=== PATIENT | male | born 1970 | race Hispanic/Latino ===

== ENCOUNTER → 2025-01-24 | Emergency (ER) | payer SELFPAY ==
[~2025-01-24] VITALS: Ht 170.2 cm; Wt 86.2 kg
[2025-01-24] MEDS: 0.9%NACL 1000ML 1,000 ML IV ONE (17:37)
--- NOTE | 2025-01-24 17:43 | EKG ---
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
--- NOTE | 2025-01-24 17:54 | ERN ---
ED Note History of Present Illness Stated Complaint: HEAT EXHAUSTION Chief Complaint: Dehydration Time Seen by MD: 17:13 Time Seen by Midlevel: 17:13 Dictation: The patient is a 54-year-old male with a history of CAD, hypertension who presents to the emergency department with complaints of dizziness, weakness, nausea nonbloody vomiting onset today. Patient reports he was working outside. Denies any falls or head trauma. Denies any diarrhea or constipation. Allergies: Coded Allergies: No Known Drug Allergies (Unverified Allergy, Unknown, 01/24/25) Past Medical History Past Medical History: CAD, Diabetes-Type II, High Cholesterol, Hypertension Surgical History: CABG RN Note Reviewed/Agreed w/PFSH: Yes Review of System Dictation Constitutional: Negative for fever,chills, and weight loss Eyes: Negative for injury, pain,redness, and discharge ENT: Negative for injury,pain or swelling Cardiovascular: Negative for chest pain, palpitations, and edema Respiratory: Negative for shortness of breath, cough, and wheezing, Abdomen/GI: Negative for abdominal pain, diarrhea, and constipation positive for nausea and vomiting Back: Negative for injury and pain : Negative for injury, bleeding and discharge MS/Extremity: Negative for injury and deformity Skin: Negative for rash, and discoloration Neuro: Negative for headache,numbness, tingling, and seizure positive for weakness, dizziness Psych: Negative for suicide ideation, homicidal ideation, and hallucinations Initial Vital Sign VS Vital Signs Date Time Temp Pulse Resp B/P (MAP) Pulse Ox O2 Delivery O2 Flow Rate FiO2 01/24/25 17:17 97.9 88 16 105/68 98 Room Air 01/24/25 17:30 0 21 Physical Exam Dictation Vital Signs reviewed General Appearance: Alert, oriented x 3, mildly distress, well developed, nourished. Head and Face: non-traumatic. Eyes: PERRL, pink conjunctivas, eyelid no trauma, anterior chamber with arcus senilis. Ears: Pinnas intact and no signs of trauma or erythema ear canals clear and no discharge TM no erythema Nose: No discharge, no bleeding. Oropharynx: Mouth normal, tongue pink. pharynx clear,no erythema, tonsils no exudates, no abscesses noted, mucous membrane moist Neck: Supple, non-tender, no thyromegaly, no masses, no JVD, no bruits Breast:Deferred Chest:No tenderness, no crepitus, no paradoxical movement, no retractions Lungs:Clear, well-ventilated, symmetric, no rales, no wheezing, no rhonchi, no stridor, good breath sounds bilaterally Heart: Regular rate, regular rhythm, no murmur, no gallops Vascular: no peripheral edema, Abdomen: Soft, positive bowel sounds, nondistended, no guarding, nontender, no rebound, no masses no hepatomegaly, no splenomegaly, no Chase's sign, no hernias. Rectal: Deferred Genital: Deferred Neurological: Normal speech, motor function intact, sensory function intact Musculoskeletal: Neck nontender, full range of motion, back nontender, full range of motion, Extremities: nontender, full range of motion Skin: Color pink diaphoretic,, no turgor, no rash, no lacerations, no abrasions, no contusions. Lymphatic: Deferred Results (Laboratory/Radiology) Laboratory/Radiology Laboratory Tests Test 01/24/25 19:00 White Blood Count 17.9 K/uL (4.8-10.8) H Red Blood Count 5.33 MIL/uL (4.50-6.20) Hemoglobin 16.4 g/dL (14.0-18.0) Hematocrit 48.6 % (42-54) Mean Corpuscular Volume 91.2 fL (79-99) Mean Corpuscular Hemoglobin 30.8 pg (27.0-33.0) Mean Corpuscular Hemoglobin Concent 33.7 g/dL (32.0-36.0) Red Cell Distribution Width 13.5 % (11.0-15.5) Platelet Count 213 K/uL (130-400) Mean Platelet Volume 12.3 fL (7.5-10.5) H Immature Granulocyte % (Auto) 0.6 % (0-1) Neutrophils (%) (Auto) 82.8 % (40.0-77.0) H Lymphocytes (%) (Auto) 11.5 % (21.0-51.0) L Monocytes (%) (Auto) 4.7 % (3.0-13.0) Eosinophils (%) (Auto) 0.1 % (0.0-8.0) Basophils (%) (Auto) 0.3 % (0.0-5.0) Neutrophils # (Auto) 14.8 K/uL (1.8-7.7) H Lymphocytes # (Auto) 2.1 K/uL (1.0-4.8) Monocytes # (Auto) 0.8 K/uL (0.1-1.0) Eosinophils # (Auto) 0.01 K/uL (0.00-0.70) Basophils # (Auto) 0.05 K/uL (0.00-0.20) Absolute Immature Granulocyte (auto 0.10 K/uL (0-1) Nucleated Red Blood Cells 0.0 % (0.0-0.19) Sodium Level 142 mmol/L (136-145) Potassium Level 4.9 mmol/L (3.5-5.1) Chloride Level 107 mmol/L (101-111) Carbon Dioxide Level 25 mmol/L (21-32) Blood Urea Nitrogen 26 mg/dL (7-18) H Creatinine 2.4 mg/dL (0.5-1.3) H Glomerular Filtration Rate Calc 31 mL/min (>90) Random Glucose 129 mg/dL (70-105) H Total Calcium 9.1 mg/dL (8.5-10.1) Magnesium Level 2.00 mg/dL (1.80-2.40) Total Creatine Kinase 88 U/L (21-232) Troponin I High Sensitivity 49 ng/L (4-75) REASON: dizzy, vomiting ORDERING PHYSICIAN: ANGEL COLLINS [employer] PROCEDURE: HEAD WO - CT HEAD/BRAIN W/O CONTRAST EXAM: CT Head Without IV contrast. CLINICAL HISTORY: dizzy, vomiting TECHNIQUE: Axial computed tomography images of the head/brain without intravenous contrast. COMPARISON: None provided. FINDINGS: BRAIN: No evidence of acute hemorrhage. No mass lesion. No CT evidence for acute territorial infarct. No midline shift or extra-axial collections. VENTRICLES: No hydrocephalus. ORBITS: The orbits are unremarkable. SINUSES AND MASTOIDS: The paranasal sinuses and mastoid air cells are clear. BONES: No fracture. SOFT TISSUES: Unremarkable. IMPRESSION: No acute intracranial abnormality. /[place] REASON: dizzy ORDERING PHYSICIAN: ANGEL COLLINS [employer] PROCEDURE: CXR1VW - CHEST 1VW EXAM: CR Chest, 1 View. CLINICAL HISTORY: dizzy COMPARISON: None provided. FINDINGS: LUNGS: No active infiltrate PLEURAL SPACES: No evidence of pleural effusion or pneumothorax. MEDIASTINUM: Prominent cardiac silhouette BONES: No aggressive appearing osseous lesion seen. IMPRESSION: 1. Prominent cardiac silhouette 2. No active infiltrate /[place] Labs Reviewed?: Yes EKG: (+) rhythm (Sinus rhythm) EKG Comment: Date:01/24/2025 Time:1737 Ventricular rate:76 [place] interval:155 QRS duration:122 QT/QTc:449/505 EKG interpretation: Sinus rhythm, left bundle-branch block Reviewed by ED Attending no STEMI ED Course ED Course Orders Procedure Category Date Status Time Cbc With Differential LAB 01/24/25 Complete 17:30 Chest 1vw RAD 01/24/25 Resulted 17:30 12 Lead Ekg Tracing- EKG 01/24/25 Resulted Technical 17:30 0.9%Nacl 1000ml (Ns PHA 01/24/25 Complete 1000ml) 17:30 Ondansetron 4mg Inj PHA 01/24/25 Complete (Zofran 4mg Inj) 17:30 Magnesium LAB 01/24/25 Complete 17:30 Creatine Kinase, Total LAB 01/24/25 Complete 17:30 Troponin I High LAB 01/24/25 Complete Sensitivity 17:30 Urinalysis Profile LAB 01/24/25 Logged 17:30 Basic Metabolic Panel LAB 01/24/25 Complete 17:30 Drug Screen Urine LAB 01/24/25 Logged 17:30 Ct Head/Brain W/O CT 01/24/25 Resulted Contrast 17:30 Meclizine Hcl 25 Mg PHA 01/24/25 Complete (Antivert 25 Mg) 19:30 Current Medications Medications (Trade) Dose Ordered Sig/Blessing Route PRN Reason Start Time Stop Time Status Last Admin Dose Admin Meclizine HCl (ANTIvert 25 mg) 25 mg ONCE ONCE PO 01/24/25 19:30 01/24/25 19:31 DC 01/24/25 19:20 Ondansetron HCl (zoFRAN 4MG INJ) 4 mg ONCE ONCE IVP 01/24/25 17:30 01/24/25 17:33 DC 01/24/25 17:37 Sodium Chloride 1,000 ml @ 0 mls/hr ONCE ONCE IV 01/24/25 17:30 01/24/25 17:33 DC 01/24/25 17:37 Vital Signs Date Time Temp Pulse Resp B/P (MAP) Pulse Ox O2 Delivery O2 Flow Rate FiO2 01/24/25 19:28 98.8 75 18 155/61 99 Room Air* 0 21 01/24/25 18:14 75 20 126/81 98 Room Air* 0 21 01/24/25 17:30 97.9 80 20 118/61 97 Room Air* 0 21 01/24/25 17:17 97.9 88 16 105/68 98 Room Air Medical Decision Making MDM The patient is a 54-year-old male with a history of CAD, hypertension who presents to the emergency department with complaints of dizziness, weakness, nausea nonbloody vomiting onset today. Patient reports he was working outside. Denies any falls or head trauma. Denies any diarrhea or constipation. CBC showed leukocytosis, no anemia, chemistry showed creatinine of 2.4, negative troponin, negative CK level, CT unremarkable. I discussed with the patient that we would have to admit him to the hospital for an acute kidney injury and leukocytosis. Patient reported that he does not want to be admitted to this hospital. Risks and benefits discussed with the patient including worsening kidney condition, , sepsis. At this time patient continues to not want to stay in the hospital. AMA form signed. Patient left AMA Differential diagnosis: Electrolyte imbalance, dehydration, intracerebral hemorrhage, gastroenteritis DX & DISP Disposition: AMA Departure Condition: Stable I have reviewed the case, and I agree with, Diagnosis and Plan ANGEL COLLINS Jan 24, 2025 17:54
--- NOTE | 2025-01-24 18:08 | HMCIMG ---
EXAM: CT Head Without IV contrast. CLINICAL HISTORY: dizzy, vomiting TECHNIQUE: Axial computed tomography images of the head/brain without intravenous contrast. COMPARISON: None provided. FINDINGS: BRAIN: No evidence of acute hemorrhage. No mass lesion. No CT evidence for acute territorial infarct. No midline shift or extra-axial collections. VENTRICLES: No hydrocephalus. ORBITS: The orbits are unremarkable. SINUSES AND MASTOIDS: The paranasal sinuses and mastoid air cells are clear. BONES: No fracture. SOFT TISSUES: Unremarkable. IMPRESSION: No acute intracranial abnormality. /[place]
--- NOTE | 2025-01-24 18:11 | HMCIMG ---
EXAM: CR Chest, 1 View. CLINICAL HISTORY: dizzy COMPARISON: None provided. FINDINGS: LUNGS: No active infiltrate PLEURAL SPACES: No evidence of pleural effusion or pneumothorax. MEDIASTINUM: Prominent cardiac silhouette BONES: No aggressive appearing osseous lesion seen. IMPRESSION: 1. Prominent cardiac silhouette 2. No active infiltrate /[place]
--- NOTE | 2025-01-24 18:17 | NUR ---
CALLED AGAIN TO GIVE REPORT TO EXT [id number] PER KELLY AND NO ANSWER
[2025-01-24 19:10] LABS: IMMATURE GRANULOCYTE ABSOLUTE 0.10 K/uL (0-1); NUCLEATED RED BLOOD CELLS 0.0 % (0.0-0.19); PLATELET COUNT (AUTO) 213 K/uL (130-400); RED BLOOD CELL COUNT(AUTO) 5.33 MIL/uL (4.50-6.20); RED CELL DISTRIBUTION WIDTH 13.5 % (11.0-15.5); WHITE BLOOD COUNT (AUTO) 17.9 K/uL (4.8-10.8)
[2025-01-24 19:17] LABS: CREATININE 2.4 mg/dL (0.5-1.3); GLOMERULAR FILTR. RATE CALC 31.0 mL/min (>90); GLUCOSE,RANDOM 129.0 mg/dL (70-105); SODIUM SERUM 142.0 mmol/L (136-145); UREA NITROGEN, BLOOD 26.0 mg/dL (7-18)
[2025-01-24 19:28] VITALS: BP 155/61; PULSE 75; RESP 18; TEMP 98.8; O2SAT 99
[2025-01-24 19:31] LABS: CREATINE KINASE, TOTAL 88.0 U/L (21-232)
--- NOTE | 2025-01-24 20:24 | NUR ---
PATIENT SIGNED AMA, WOULD PREFER TO GO TO [facility]
== END ==
LOC: EDH 17:10
DX: R42 Dizziness and giddiness (principal); R53.1 Weakness; R11.2 Nausea with vomiting, unspecified; E11.9 Type 2 diabetes mellitus without complications; E78.00 Pure hypercholesterolemia, unspecified; I10 Essential (primary) hypertension; I25.10 Atherosclerotic heart disease of native coronary artery without angina pectoris; Z95.1 Presence of aortocoronary bypass graft
CPT/HCPCS: 99285; 96374; 70450; 96361; 71045; 82550; 83735; 84484; 80048; 85025; 36415; 93005; J7030; J2405